=== PATIENT | male | born 1955 | race Caucasian/White ===

== ENCOUNTER → 2019-10-26 | Outpatient (CLI) | payer OTHER ==
--- NOTE | 2019-10-26 16:18 | Diagnostic Imaging Report ---
PROCEDURE: CT neck soft tissue without contrast. TECHNIQUE: Multiple contiguous axial images were obtained through the neck without the use of intravenous contrast. Auto Exposure Controls were utilized during the CT exam to meet ALARA standards for radiation dose reduction. INDICATION: Cough. Globus sensation. Comparison: None. Findings: The posterior nasopharynx and oropharynx demonstrate appropriate symmetry. There is no displacement of the parapharyngeal fat planes. There is no abnormal process evident within the prevertebral or retropharyngeal space. There is no evidence of abnormal thickening of the epiglottis or aryepiglottic folds. The vocal folds appear symmetric. The parotid, submandibular and thyroid gland are unremarkable. No pathologically enlarged cervical lymph nodes are evident. No focal inflammatory changes are demonstrated. No soft tissue mass or fluid collection demonstrated. The visualized lung apices are clear. Visualized orbital contents are unremarkable. The visualized paranasal sinuses demonstrate retained secretions in the bilateral maxillary sinuses. The mastoids and middle ears are clear. No acute osseous abnormality in the cervical spine. Degenerative changes are present in the cervical spine. There is straightening of the cervical spine.1 Impression: 1. Appropriate symmetry of the aerodigestive tract. 2. No evidence of pathologic adenopathy. 3. No soft tissue mass, fluid collection or focal inflammatory changes demonstrated. Dictated by: Dictated on workstation # [id number]
== END ==
LOC: RAD FS 13:41
PROVIDERS: ATTEND Otolaryngology Otolaryngology/Facial Plastic Surgery
DX: R05 Cough (principal); R09.89 Other specified symptoms and signs involving the circulatory and respiratory systems
CPT/HCPCS: 70490